=== PATIENT | female | born 1995 | race Caucasian/White ===

== ENCOUNTER 2019-11-26 21:52 | Emergency (ER) | payer BC ==
[2019-11-27 01:53] LABS: ABSOLUTE EOSINOPHILS # (AUTO) 0.1 10^3/uL (0.0-0.6); ABSOLUTE LYMPHOCYTES (AUTO) 2.6 10^3/uL (0.5-4.7); ABSOLUTE MONOCYTES (AUTO) 0.4 10^3/uL (0.1-1.4); ABSOLUTE NEUT (AUTO) 4.1 10^3/uL (1.7-8.2); BASOPHILS % (AUTO) 0.5 % (0-2); EOSINOPHILS % (AUTO) 1.6 % (0-6); HEMATOCRIT 38.5 % (36.0-47.0); HEMOGLOBIN 12.7 g/dL (12.0-15.5); LYMPHOCYTES % (AUTO) 36.1 % (13-45); MEAN CORPUSCULAR HEMOGLOBIN 26.5 pg (27.0-33.4); MEAN CORPUSCULAR HGB CONC 33.1 g/dL (32.0-36.0); MEAN CORPUSCULAR VOLUME 80 fl (80-97); MONOCYTES % (AUTO) 5.4 % (3-13); PLATELET COUNT 244 10^3/uL (150-450); RED CELL DISTRIBUTION WIDTH 17.4 % (11.5-14.0); SEGMENTED NEUTROPHILS % (AUTO) 56.4 % (42-78); TOTAL CELLS COUNTED % (AUTO) 100 %; WHITE BLOOD COUNT 7.3 10^3/uL (4.0-10.5)
[2019-11-27 02:01] LABS: APPEARANCE,URINE CLEAR; BILIRUBIN,URINE NEGATIVE (NEGATIVE); COLOR,URINE YELLOW; GLUCOSE, URINE NEGATIVE (NEGATIVE); KETONES,URINE 20 mg/dL (NEGATIVE); LEUKOCYTE ESTERASE,URINE NEGATIVE (NEGATIVE); NITRITE,URINE NEGATIVE (NEGATIVE); PROTEIN,URINE NEGATIVE (NEGATIVE); URINE SPECIFIC GRAVITY 1.015; UROBILINOGEN,URINE NEGATIVE mg/dL (<2.0)
[2019-11-27 02:07] LABS: ALBUMIN 4.4 g/dL (3.5-5.0); ALKALINE PHOSPHATASE 45 U/L (38-126); ANION GAP 5 (5-19); ASPARTATE AMINO TRANSFERASE 21 U/L (14-36); BILIRUBIN,TOTAL 0.6 mg/dL (0.2-1.3); BLOOD UREA NITROGEN 10 mg/dL (7-20); CALCIUM 9.3 mg/dL (8.4-10.2); CARBON DIOXIDE 26 mmol/L (22-30); CHLORIDE 107 mmol/L (98-107); GLUCOSE 99 mg/dL (75-110); POTASSIUM 3.6 mmol/L (3.6-5.0); TOTAL PROTEIN 7.2 g/dL (6.3-8.2)
[2019-11-27] MEDS ORDERED: ONDANSETRON ODT 4 MG TAB (6 TAB/ER DISP) PO PRN (02:21)
[2019-11-27] MEDS ORDERED: ONDANSETRON 4 MG TAB.RAPDIS PO ONE (02:21)
[2019-11-27] MEDS ORDERED: DIPHENOXYLATE HCL/ATROP SULF 2.5-0.025 MG TABLET PO ONE (02:21)
--- NOTE | 2019-11-27 02:30 | ER Document Report ---
ED General - General Chief Complaint: RLQ pain and diarrhea Stated Complaint: RIGHT FLANK PAIN, NAUSEA, DIARRHEA Time Seen by Provider: 11/27/19 01:14 - HPI Notes: Patient is a 24-year-old female who presents to the emergency department for evaluation. She states over the last 4 to 5 days she just has been feeling well. She has been "queasy" with a diminished appetite. She has had nausea but no emesis. She complains of a diminished appetite. She states she developed diarrhea in the last 36 hours. She states she is had 10 episodes of watery diarrhea today. She is not been on any recent antibiotics. She denies any ab normal foods. No abnormal ingestions. She has had some chills, no oscar fevers to her knowledge. She developed some pain in her right side yesterday, it seemed to worsen today. It comes and goes. She states nothing seems to make it come on, nothing seems to make it go away. She denies any vaginal discharge, no abnormal vaginal bleeding. She denies any urinary symptoms. - Related Data Home Medications: None Past Medical History - General Information source: Patient - Social History Smoking Status: Current Every Day Smoker Chew tobacco use (# tins/day): No Frequency of alcohol use: Social Drug Abuse: None Family History: Hypertension - Mom Psychiatric Medical History: Reports: Hx Depression - History of cutting Past Surgical History: Reports: Hx Tonsillectomy Review of Systems - Review of Systems Constitutional: See HPI Gastrointestinal: See HPI -: Yes All other systems reviewed and negative Physical Exam - Vital signs Vitals: Temp Pulse Resp BP Pulse Ox 98.3 F 62 16 134/80 H 100 11/26/19 23:56 11/26/19 23:56 11/26/19 23:56 11/26/19 23:56 11/26/19 23:56 - Notes Notes: Vital signs reviewed, please refer to chart. Head is normocephalic, atraumatic. Pupils equal round, reactive to light. Neck is supple without meningismus. Heart is regular rate and rhythm. Lungs are clear to auscultation bilaterally. Abdomen is soft, minimally tender in the right lower quadrant without rebound or guarding, normoactive bowel sounds throughout. Negative heeltap. Patient is able to jump up and down beside the bed without difficulty. Extremities without cyanosis, clubbing. Posterior calves are nontender. Peripheral pulses are equal. Skin is warm and dry. Patient is awake, alert, neurological exam is nonfocal. Course - Re-evaluation Re-evalutation: 11/27/19 02:34 Patient presents to the emergency department for evaluation. She said symptoms for 4 or 5 days. Today she has minimal right lower quadrant tenderness, negative Rovsing's, absolutely no peritoneal signs. Lab work today fails to show any leukocytosis or pyuria. I will treat her for nausea, vomiting, diarrhea. At this point we talked at length. I told her that appendicitis was still on the differential, but it was low. At this point, serial abdominal exams reveal very minimal tenderness, no rebound or guarding. She is to follow- up closely with primary care. She is given Zofran and Lomotil here. I will send her with a 6 pack of Zofran and close follow-up. She is to return to the ED with worsening or new concerning symptoms of any sort. - Vital Signs Vital signs: Temp Pulse Resp BP Pulse Ox 98.3 F 62 16 134/80 H 100 11/27/19 02:03 11/26/19 23:56 11/26/19 23:56 11/26/19 23:56 11/26/19 23:56 - Laboratory Result Diagrams: 11/27/19 01:35 11/27/19 01:35 Laboratory results interpreted by me: 11/27/19 11/27/19 01:35 01:35 MCH 26.5 L RDW 17.4 H Urine Ketones 20 H Urine Blood SMALL H Discharge - Discharge Clinical Impression: Right lower quadrant abdominal pain Nausea and vomiting Qualifiers: Vomiting Intractability: non-intractable Diarrhea Qualifiers: Diarrhea type: unspecified type Qualified Code(s): R19.7 - Diarrhea, u nspecified Condition: Stable Disposition: HOME, SELF-CARE Instructions: Abdominal Pain ([facility]), Intravenous (IV) Fluids ([facility]), Diarrhea, Nonspecific ([facility]), Vomiting ([facility]) Additional Instructions: Your work-up here showed no significant abnormalities. Your labs were normal. Your vital signs were normal. You did have tenderness in your right lower quadrant, but it was not severe. No imaging was ordered, as I have a low suspicion for appendicitis. If your symptoms persist, or certainly if they worsen, or you develop new or concerning symptoms of any sort, please return immediately to the emergency department for evaluation. Otherwise, follow-up with primary care in 1 to 2 days.
[2019-11-27 03:08] VITALS: BP 117/81
== END 2019-11-27 03:18 | disposition home or self-care (01) ==
LOC: ER 21:52
DX: R10.31 Right lower quadrant pain (principal); R11.2 Nausea with vomiting, unspecified; R19.7 Diarrhea, unspecified; F17.200 Nicotine dependence, unspecified, uncomplicated
CPT/HCPCS: 99283; 36415; 84703; 85025; 80053; 81001; J3490; S0119